=== PATIENT | female | born 1975 | race Caucasian/White ===

== ENCOUNTER 2017-10-11 15:08 | Emergency (ER) | END 2017-10-11 21:31 | disposition home or self-care (01) ==

== ENCOUNTER 2018-06-22 15:02 | Emergency (ER) | payer MEDICAID ==
[~2018-06-22] VITALS: Ht 165.1 cm; Wt 54.1 kg
[~2018-06-22 15:02] MED LIST: CEPH-443 PO
[2018-06-22 15:07] VITALS: Ht 165.1 cm; Wt 54.1 kg
[2018-06-22] MEDS ORDERED: SOD CHLORIDE 0.9% 1,000 ML IV STA (15:49)
[2018-06-22] MEDS ORDERED: ONDANSETRON 4 MG INJ IV STA (15:49)
[2018-06-22] MEDS ORDERED: ONDA4TAB14 PO (17:22)
--- NOTE | 2018-06-22 17:29 | ERD ---
ER Documentation Chief Complaint Chief Complaint Sent from MD for evaluation Hyperemesis, 7 weeks HPI Patient is a 42-year-old female with hypertension who presents with vomiting. She has had vomiting for 1 week. She is approximately 7 weeks . She denies pain. She had subjective fever but did not take her temperature. 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 She went to her clinic today who sent her to the emergency department for fluids. She has had no treatment as of yet. She is a . Her OB doctor is Dr. Torrez. ROS All systems reviewed and are negative except as per history of present illness. Medications Home Meds Active Scripts Ondansetron (Ondansetron Odt) 4 Mg Tab.rapdis, 4 MG PO Q6H PRN for NAUSEA AND/OR VOMITING, #10 TAB Prov:JIN SIMSPON MD 06/22/18 Discontinued Scripts Cephalexin* (Keflex*) 500 Mg Capsule, 500 MG PO QID for 7 Days, CAP Prov:REYNA CEBALLOS PA-C 10/11/17 Allergies Allergies: Coded Allergies: aspirin (Unverified Allergy, Unknown, 06/22/18) PMhx/Soc Medical and Surgical Hx: pt denies Medical Hx, pt denies Surgical Hx Hx Alcohol Use: No Hx Substance Use: No Hx Tobacco Use: No Smoking Status: Never smoker FmHx Family History: No diabetes Physical Exam Vitals Vital Signs Date Temp Pulse Resp B/P (MAP) Pulse Ox O2 O2 Flow FiO2 Time Delivery Rate 06/22/18 71 20 95/64 (74) 97 Room Air 16:13 06/22/18 98.6 72 20 103/66 99 15:07 (78) Physical Exam Const: No acute distress Head: Atraumatic Eyes: Normal Conjunctiva ENT: Normal External Ears, Nose and Mouth. Neck: Full range of motion. No meningismus. Resp: Clear to auscultation bilaterally Cardio: Regular rate and rhythm, no murmurs Abd: Soft, non tender, non distended. Normal bowel sounds Skin: No petechiae or rashes Back: No midline or flank tenderness Ext: No cyanosis, or edema Neur: Awake and alert Psych: Normal Mood and Affect Result Diagram: 06/22/18 1602 06/22/18 1602 Results 24 hrs Laboratory Tests Test 06/22/18 16:02 White Blood Count 6.1 10^3/ul Red Blood Count 4.49 10^6/ul Hemoglobin 13.7 g/dl Hematocrit 40.5 % Mean Corpuscular Volume 90.2 fl Mean Corpuscular Hemoglobin 30.5 pg Mean Corpuscular Hemoglobin Concent 33.8 g/dl Red Cell Distribution Width 12.0 % Platelet Count 308 10^3/UL Mean Platelet Volume 10.6 fl Immature Granulocytes % 0.300 % Neutrophils % 66.8 % Lymphocytes % 24.0 % Monocytes % 6.4 % Eosinophils % 2.0 % Basophils % 0.5 % Nucleated Red Blood Cells % 0.0 /100WBC Immature Granulocytes # 0.020 10^3/ul Neutrophils # 4.0 10^3/ul Lymphocytes # 1.5 10^3/ul Monocytes # 0.4 10^3/ul Eosinophils # 0.1 10^3/ul Basophils # 0.0 10^3/ul Nucleated Red Blood Cells # 0.0 10^3/ul Sodium Level 140 mmol/L Potassium Level 3.7 mmol/L Chloride Level 104 mmol/L Carbon Dioxide Level 23 mmol/L Anion Gap 13 Blood Urea Nitrogen 10 mg/dl Creatinine 0.43 mg/dl Est Glomerular Filtrat Rate mL/min > 60 mL/min Glucose Level 134 mg/dl Calcium Level 9.3 mg/dl Total Bilirubin 0.3 mg/dl Direct Bilirubin 0.00 mg/dl Indirect Bilirubin 0.3 mg/dl Aspartate Amino Transf (AST/SGOT) 30 IU/L Alanine Aminotransferase (ALT/SGPT) 25 IU/L Alkaline Phosphatase 59 IU/L Total Protein 7.6 g/dl Albumin 4.2 g/dl Globulin 3.40 g/dl Albumin/Globulin Ratio 1.23 Current Medications Medications Dose Sig/Tori Start Time Status Last (Trade) Ordered Route PRN Stop Time Admin Dose Reason Admin Sodium 1,000 ml @ Q1H STAT 06/22/18 DC 06/22/18 Chloride 1,000 mls/hr IV 15:49 16:03 06/22/18 16:48 Ondansetron 4 mg ONCE STAT 06/22/18 DC 06/22/18 HCl (Zofran IV 15:49 16:03 Inj) 06/22/18 15:50 Procedures/MDM Ultrasound shows IUP per radiology. Patient is a 42-year-old female presents with hyperemesis gravidarum. Laboratory studies are basically normal. The patient was given normal saline 1 L bolus and Zofran. Patient will be discharged as she was able to eat in the emergency department. She will be given a short course of Zofran for symptom medic relief. She can follow back with her OB doctor within 24-48 hours. Departure Diagnosis: Primary Impression: Hyperemesis Condition: Fair Patient Instructions: Hyperemesis Gravidarum (Severe Morning Sickness) Referrals: DIEGO TORREZ MD Additional Instructions: Specialist:Usted tiene monica condicin mdica que requiere que aramis a un especialista dentro de los prximos 1-2 harding.POR FAVOR,CON RUBIN SEGUIMIENTO DE PRIMARIA PHSICIAN refferal. SI USTED NO TIENE UN MDICO GENERAL Y / O USTED NO PUEDE PAGAR vicky a un mdico,los siguientes dawson RECURSOS sido suministrado a usted. ES RUBIN RESPONSABILIDAD PARA SER VISTOS POR EL ESPECIALISTA: JIN SIMPSON MD Jun 22, 2018 17:29
[2018-06-22 17:37] VITALS: BP 94/71; PULSE 87; RESP 14
== END 2018-06-22 17:38 | disposition home or self-care (01) ==
LOC: E/R 15:02
DX: O21.0 Mild hyperemesis gravidarum (principal); O10.011 Pre-existing essential hypertension complicating pregnancy, first trimester; Z3A.08 8 weeks gestation of pregnancy
CPT/HCPCS: 36415; 76801; 80053; 84702; 85025; 86900; 86901; 96374; J2405; J7030; Z7502

== ENCOUNTER 2018-07-02 11:51 | Emergency (ER) | payer MEDICAID ==
[~2018-07-02] VITALS: Ht 157.5 cm; Wt 52.7 kg
[~2018-07-02 11:51] MED LIST changes: -CEPH-443 PO; +ONDA4TAB14 PO
[2018-07-02 11:57] VITALS: BP 110/70; PULSE 78; RESP 18; Ht 157.5 cm; Wt 52.7 kg
[2018-07-02] MEDS ORDERED: SOD CHLORIDE 0.9% 1,000 ML IV STA (12:09)
[2018-07-02] MEDS ORDERED: METOCLOPRAMIDE 10 MG INJ IV ONE (12:30)
[2018-07-02] MEDS ORDERED: FAMOTIDINE 20 MG INJ IV ONE (12:30)
[2018-07-02] MEDS ORDERED: DIPHENHYDRAMINE 50 MG INJ IV ONE (12:30)
[2018-07-02] MEDS ORDERED: CEFTRIAXONE 1 GM/50 ML (PMX) 50 ML IVPB ONE (14:00)
[2018-07-02] MEDS ORDERED: METO10TA92 PO (14:57)
[2018-07-02] MEDS ORDERED: CEPH-443 PO (14:57)
[2018-07-02] MEDS ORDERED: ACET500C5 PO (15:01)
--- NOTE | 2018-07-02 17:28 | ERD ---
ER Documentation Chief Complaint Chief Complaint c/o Nausea/vomiting x2 days with epigastric pain, 9 weeks HPI 43-year-old female patient, currently , presents the ED stating that she has some epigastric pain that started 2 days ago associated with vomiting. Reports that she has been here previously for hyperemesis. States her FINISHED CLOTH CHECKER is Dr. Panda. She is a A2. States her last injection was on April 29, 2018. Denies any chest pain, shortness of breath, nausea, vomiting, diarrhea, neck stiffness. ROS All systems reviewed and are negative except as per history of present illness. Medications Home Meds Active Scripts Acetaminophen* (Tylophen*) 500 Mg Capsule, 1 CAP PO Q6H PRN for PAIN AND OR ELEVATED TEMP, #20 CAP Prov:BAR MCGUIRE PA-C 07/02/18 Metoclopramide* (Reglan*) 10 Mg Tablet, 10 MG PO Q6 PRN for NAUSEA AND/OR VOMITING, #10 TAB Prov:BAR MCGUIRE PA-C 07/02/18 Cephalexin* (Keflex*) 500 Mg Capsule, 500 MG PO QID for 7 Days, CAP Prov:BAR MCGUIRE PA-C 07/02/18 Ondansetron (Ondansetron Odt) 4 Mg Tab.rapdis, 4 MG PO Q6H PRN for NAUSEA AND/OR VOMITING, #10 TAB Prov:JIN SIMPSON MD 06/22/18 Allergies Allergies: Coded Allergies: aspirin (Unverified Allergy, Unknown, 06/22/18) PMhx/Soc Medical and Surgical Hx: pt denies Medical Hx, pt denies Surgical Hx Hx Alcohol Use: No Hx Substance Use: No Hx Tobacco Use: No Smoking Status: Never smoker FmHx Family History: No diabetes, No coronary disease Physical Exam Vitals Vital Signs Date Temp Pulse Resp B/P (MAP) Pulse Ox O2 O2 Flow FiO2 Time Delivery Rate 07/02/18 98.7 14:05 07/02/18 97.8 78 18 110/70 98 11:57 (83) Physical Exam Const: Dtb-[id number]-mrdoafjzs, well-nourished. In no acute distress. Head: Atraumatic, normocephalic Eyes: Normal Conjunctiva without injection. No purulent discharge. ENT: Normal external ear, nose. Moist oropharynx without tonsillar exudates. Non-erythematous pharynx. Uvula midline. No drooling. No trismus. Neck: No cervical midline tenderness. Full range of motion. No meningismus. No cervical lymphadenopathy. No JVD. Resp: Clear to auscultation bilaterally. No wheezing, rhonchi, rales, or crackles. No accessory muscle use. No retractions. Cardio: Regular rate and rhythm. No murmurs, rubs or gallops. Abd: Soft, epigastric and right upper quadrant tenderness, non distended. Normal bowel sounds. No palpable masses. No rebound tenderness. No guarding. Negative McBurney's point. Negative psoas sign. Negative obturator sign. Skin: No petechiae or rashes Back: No midline tenderness. No CVA tenderness. Ext: No cyanosis, or edema. Neur: Awake and alert. Normal gait. Normal coordination. Psych: Normal Mood and Affect Result Diagram: 07/02/18 1226 07/02/18 1226 Results 24 hrs Laboratory Tests Test 07/02/18 12:26 White Blood Count 7.9 10^3/ul Red Blood Count 4.82 10^6/ul Hemoglobin 14.6 g/dl Hematocrit 43.6 % Mean Corpuscular Volume 90.5 fl Mean Corpuscular Hemoglobin 30.3 pg Mean Corpuscular Hemoglobin Concent 33.5 g/dl Red Cell Distribution Width 11.6 % Platelet Count 359 10^3/UL Mean Platelet Volume 10.7 fl Immature Granulocytes % 0.600 % Neutrophils % 74.0 % Lymphocytes % 16.6 % Monocytes % 7.4 % Eosinophils % 1.1 % Basophils % 0.3 % Nucleated Red Blood Cells % 0.0 /100WBC Immature Granulocytes # 0.050 10^3/ul Neutrophils # 5.8 10^3/ul Lymphocytes # 1.3 10^3/ul Monocytes # 0.6 10^3/ul Eosinophils # 0.1 10^3/ul Basophils # 0.0 10^3/ul Nucleated Red Blood Cells # 0.0 10^3/ul Urine Color ZOEY Urine Clarity TURBID Urine pH 6.0 Urine Specific Correll 1.024 Urine Ketones 1+ mg/dL Urine Nitrite NEGATIVE mg/dL Urine Bilirubin NEGATIVE mg/dL Urine Urobilinogen 1+ mg/dL Urine Leukocyte Esterase 3+ Araceli/ul Urine Microscopic RBC 34 /HPF Urine Microscopic WBC > 182 /HPF Urine Squamous Epithelial Cells MANY /HPF Urine Bacteria FEW /HPF Urine Mucus MANY /HPF Urine Hemoglobin NEGATIVE mg/dL Urine Glucose NEGATIVE mg/dL Urine Total Protein 1+ mg/dl Sodium Level 140 mmol/L Potassium Level 4.2 mmol/L Chloride Level 102 mmol/L Carbon Dioxide Level 25 mmol/L Anion Gap 13 Blood Urea Nitrogen 8 mg/dl Creatinine 0.53 mg/dl Est Glomerular Filtrat Rate mL/min > 60 mL/min Glucose Level 86 mg/dl Calcium Level 10.1 mg/dl Total Bilirubin 0.3 mg/dl Direct Bilirubin 0.00 mg/dl Indirect Bilirubin 0.3 mg/dl Aspartate Amino Transf (AST/SGOT) 25 IU/L Alanine Aminotransferase (ALT/SGPT) 16 IU/L Alkaline Phosphatase 79 IU/L Total Protein 8.3 g/dl Albumin 4.7 g/dl Globulin 3.60 g/dl Albumin/Globulin Ratio 1.30 Lipase 94 U/L Beta HCG, Quantitative 671988.0 mIU/ml Current Medications Medications Dose Sig/Tori Start Time Status Last (Trade) Ordered Route PRN Stop Time Admin Dose Reason Admin Sodium 1,000 ml @ Q1H STAT 07/02/18 DC 07/02/18 Chloride 1,000 mls/hr IV 12:09 07/02/18 12:26 13:08 10 mg ONCE ONCE 07/02/18 DC 07/02/18 Metoclopramid IV 12:30 07/02/18 12:26 e HCl 12:31 (Reglan) 25 mg ONCE ONCE 07/02/18 DC 07/02/18 Diphenhydrami IV 12:30 07/02/18 12:26 ne HCl 12:31 (Benadryl) Famotidine 20 mg ONCE ONCE 07/02/18 DC 07/02/18 (Pepcid Iv) IV 12:30 07/02/18 12:26 12:31 Ceftriaxone 50 ml @ ONCE ONCE 07/02/18 DC 07/02/18 Sodium 100 mls/hr IVPB 14:00 07/02/18 14:03 14:29 Procedures/MDM 43-year-old female patient with no significant past medical history presents to the ED complaining of vomiting and epigastric pain. Patient is afebrile and nontoxic-appearing. An ultrasound, beta-hCG, CBC, type and RH, UA was ordered to evaluate patient. CBC: No evidence of severe infection or anemia CMP: No evidence of alkalosis, acidosis, liver disease, DKA, kidney disease Urine: No elevation in nitrites, 3+ leukocyte esterase, hematuria. Rh: O positive. No indication for Rhogam at this time. beta Hc increased from last visit. Lipase WNL IMPRESSION: 1. Cholelithiasis. There is no gallbladder wall thickening or pericholecystic fluid to suggest acute cholecystitis. 2. No biliary duct dilatation IMPRESSION: 1. Single live insuring of 9 weeks 1 day gestation. 2. Positive cardiac activity. 3. Stable small subchorionic hemorrhage. 4. Corpus luteal cyst within left ovary. There are no complex adnexal masses. 5. No free fluid Patient has a single IUP of 9 weeks, 1 day. Patient noted to have 3+ leukocyte esterase and > 182 WBC. Patient will be treated for urinary tract infection. Patient was treated here in the ED with ceftriaxone 1 g IV and 1 L of normal saline with improvement of her symptoms. She also has hyperemesis gravidarum. Instructed that since she had a small subchorionic hemorrhage, pelvic rest was recommended. Low suspicion for symptomatic anemia, ectopic , sepsis, PID, appendicitis, ovarian torsion, tubo-ovarian abscess, surgical abdomen, or other emergent conditions. Patient was educated that there is a risk for threatened . Patient to follow up with FINISHED CLOTH CHECKER in 2 days for further evaluation and treatment. Patient is to return sooner to the ED for any worsening symptoms. Patient's questions were answered. Patient understood and agreed with discharge plan. Spoke to Dr. Eckert, my supervising physician who agreed with the management discharge plan. Diagnosis: Urinary Tract Infection, Vomiting During Discharge medications: Reglan, Keflex, Tylenol Follow up with primary care physician in 1-2 days. Instructed patient to return to the ED sooner for any worsening symptoms. Patient's questions were answered. Patient is hemodynamically stable. Patient understood and agreed with discharge plan. Patient discharged stable. Disclaimer: Inadvertent spelling and grammatical errors are likely due to EHR/dictation software use and do not reflect on the overall quality of patient care. Also, please note that the electronic time recorded on this note does not necessarily reflect the actual time of the patient encounter. Departure Diagnosis: Primary Impression: Urinary tract infection Urinary tract infection type: site unspecified Hematuria presence: without hematuria Qualified Codes: N39.0 - Urinary tract infection, site not specified Additional Impression: Vomiting during Condition: Stable Patient Instructions: What Are Ovarian Cysts?, Urinary Tract Infections in Women, After Age 35, : Your First Trimester Changes, Hyperem esis Gravidarum Referrals: [facility] YOU HAVE RECEIVED A MEDICAL SCREENING EXAM AND THE RESULTS INDICATE THAT YOU DO NOT HAVE A CONDITION THAT REQUIRES URGENT TREATMENT IN THE EMERGENCY DEPARTMENT. FURTHER EVALUATION AND TREATMENT OF YOUR CONDITION CAN WAIT UNTIL YOU ARE SEEN IN YOUR DOCTORS OFFICE WITHIN THE NEXT 1-2 DAYS. IT IS YOUR RESPONSIBILITY TO MAKE AN APPOINTMENT FOR FOLOW-UP CARE. IF YOU HAVE A PRIMARY DOCTOR --you should call your primary doctor and schedule an appointment IF YOU DO NOT HAVE A PRIMARY DOCTOR YOU CAN CALL OUR PHYSICIAN REFERRAL HOTLINE AT IF YOU CAN NOT AFFORD TO SEE A PHYSICIAN YOU CAN CHOSE FROM THE FOLLOWING [facility] [address] [facility] [address] [facility] [facility]. [facility] [address] [facility] [address] [facility] [address] [facility]. [facility] [address] [facility]. [facility] YOU HAVE RECEIVED A MEDICAL SCREENING EXAM AND THE RESULTS INDICATE THAT YOU DO NOT HAVE A CONDITION THAT REQUIRES URGENT TREATMENT IN THE EMERGENCY DEPARTMENT. FURTHER EVALUATION AND TREATMENT OF YOUR CONDITION CAN WAIT UNTIL YOU ARE SEEN IN YOUR DOCTORS OFFICE WITHIN THE NEXT 1-2 DAYS. IT IS YOUR RESPONSIBILITY TO MAKE AN APPOINTMENT FOR FOLOW-UP CARE. IF YOU HAVE A PRIMARY DOCTOR --you should call your primary doctor and schedule and appointment IF YOU DO NOT HAVE A PRIMARY DOCTOR YOU CAN CALL OUR PHYSICIAN REFERRAL HOTLINE AT . IF YOU CAN NOT AFFORD TO SEE A PHYSICIAN YOU CAN CHOSE FROM THE FOLLOWING [facility] INSTITUTIONS: [facility] [address] [place] [address] [facility] [address] [place] [address] [facility] [address] [place] [address] [facility] URGENT CARE/SPECIALTIES FINISHED CLOTH CHECKER [place] [address] [facility] [address] [place] [address] OFFICE FAX , [facility] [address] [place] [address] [address] ENGEL, [place] [address] [place] [address] DR ZHANG, [facility] [address] [facility], [address], [facility] [address] [address]WIS, [facility] [address] [place] [address] [facility] [address] [place] [address] [address] [facility] [address] - [address] REDDY ZORA [address] [facility]. [address], [facility] [address] [address] NATARAJAN, [facility] [address] [facility]. [address], [facility] [address] [address] MERRILL, [facility] [address] [place], [place] [id number] [facility] Hours: 8:00 am - 5:00 pm Additional Instructions: Call your FINISHED CLOTH CHECKER TOMORROW for an appointment during the next 2-3 days.See the doctor sooner or return here if your condition worsens before your appointment time. BAR MCGUIRE PA-C Jul 02, 2018 17:26
== END 2018-07-02 15:08 | disposition home or self-care (01) ==
LOC: FTE 11:51
DX: O23.41 Unspecified infection of urinary tract in pregnancy, first trimester (principal); R10.2 Pelvic and perineal pain; Z3A.09 9 weeks gestation of pregnancy
CPT/HCPCS: 36415; 76705; 76801; 80053; 81001; 83690; 84702; 85025; 86900; 86901; 96361; 96365; 96375; J0696; J1200; J2765; J7030; Z7502; Z7610

== ENCOUNTER 2018-10-15 23:32 | Emergency (ER) | payer MEDICAID ==
[~2018-10-15] VITALS: Ht 139.7 cm; Wt 55.0 kg
[~2018-10-15 23:32] MED LIST changes: +ACET500C5 PO; +CEPH-443 PO; +METO10TA92 PO
[2018-10-15 23:39] VITALS: Ht 139.7 cm; Wt 55.0 kg
[2018-10-15 23:56] VITALS: BP 99/65; PULSE 70; RESP 16
[2018-10-15] MEDS ORDERED: BELLADONNA/PHENOBARBITAL TAB PO STA (23:56)
[2018-10-15] MEDS ORDERED: LIDOCAINE/MYLANTA 40 ML BTL PO STA (23:56)
--- NOTE | 2018-10-15 23:56 | ERD ---
ER Documentation Chief Complaint Chief Complaint SOBWITH CHEST PAIN STARTED AROUND 1630 TODAY, OB CLEARED. HPI This is a 43-year-old woman 6 weeks by previously confirmed normal ul trasound and dates just cleared from the OB department and brought here for evaluation of chest pain. The pain is sharp nonexertional nonradiating and has been constant for the last 8 to 9 hours. She denies fevers or chills, no cough, no sore throat, no calf or leg swelling, no headache or blurry vision. ROS All systems reviewed and are negative except as per history of present illness. Medications Home Meds Discontinued Scripts Acetaminophen* (Tylophen*) 500 Mg Capsule, 1 CAP PO Q6H PRN for PAIN AND OR ELEVATED TEMP, #20 CAP Prov:BAR MCGUIRE PA-C 07/02/18 Metoclopramide* (Reglan*) 10 Mg Tablet, 10 MG PO Q6 PRN for NAUSEA AND/OR VOMITING, #10 TAB Prov:BAR MCGUIRE PA-C 07/02/18 Cephalexin* (Keflex*) 500 Mg Capsule, 500 MG PO QID for 7 Days, CAP Prov:BAR MCGUIRE PA-C 07/02/18 Ondansetron (Ondansetron Odt) 4 Mg Tab.rapdis, 4 MG PO Q6H PRN for NAUSEA AND/OR VOMITING, #10 TAB Prov:JIN SIMPSON MD 06/22/18 Allergies Allergies: Coded Allergies: acetaminophen (Verified Allergy, Mild, RASH, 10/15/18) PMhx/Soc Medical and Surgical Hx: pt denies Medical Hx, pt denies Surgical Hx Hx Alcohol Use: No Hx Substance Use: No Hx Tobacco Use: No Smoking Status: Never smoker FmHx Family History: No diabetes Physical Exam Vitals Vital Signs Date Temp Pulse Resp B/P (MAP) Pulse Ox O2 O2 Flow FiO2 Time Delivery Rate 10/15/18 70 16 99/65 (76) 98 Room Air 23:56 10/15/18 97.3 65 16 90/62 (71) 98 23:39 Physical Exam CARDIAC: Regular rate and rhythm, no murmurs rubs or gallops LUNGS: Clear bilaterally no wheezing crackles or stridor ABDOMEN: Soft nontender, no guarding, no rigidity, no rebound, no psoas sign no obturator sign. Normoactive bowel sounds SKIN: Warm and dry to touch, no abrasions, contusions, or hematomas, no lacerations, no ecchymosis, no target lesions, and without ulcers EXTREMITIES: No clubbing cyanosis or edema, calves are bilaterally symmetrical, no Homans sign, no popliteal cord sign. Distal pulses equal and bilateral PSYCH: Normal affect without agitation or irritability Results 24 hrs Laboratory Tests Test 10/15/18 23:58 Troponin I < 0.012 ng/ml B-Type Natriuretic Peptide 70 PG/ML Current Medications Medications Dose Sig/Tori Start Time Status Last (Trade) Ordered Route PRN Stop Time Admin Dose Reason Admin 40 ml ONCE STAT 10/15/18 DC Miscellaneous PO 23:56 Medication 10/15/18 23:57 (Gi Cocktail (2)) Belladonna/ 2 tab ONCE STAT 10/15/18 DC Phenobarbital PO 23:56 () 10/15/18 23:57 Procedures/MDM IV line was established patient was placed on monitor tech rhythm strip revealed a sinus rhythm at about 80 bpm with upright P and T waves. Patient was afebrile EKG was performed, read by me revealed a normal sinus rhythm 81 bpm, normal axis, narrow QRS complex, no concerning ST elevations or depressions noted Troponin was negative, BNP was low. Patient's vital signs are normal and oxygen saturation is 100% on room air. She looks well will be discharged to follow-up with PMD for continued outpatient management. Differential diagnoses considered, included but not limited to acute coronary syndrome, pulmonary embolism, aortic dissection, abdominal aortic aneurysm, sepsis, stroke, meningitis, encephalitis, pneumonia, appendicitis, cholecystitis, bowel obstruction, pyelonephritis, nephrolithiasis, cystitis, as well as metabolic, hematologic, and electrolyte abnormalities. As well as abscess, cellulitis, fractures, and dislocations. Patient feels much better at this time, and vital signs are normal, symptoms have improved. I did give strict instructions to return to the ED if symptoms continue or worsen, patient will otherwise follow-up with primary care physician. Patient understood instructions and agreed to plan. Disclaimer: Inadvertent spelling and grammatical errors are likely due to EHR/dictation software use and do not reflect on the overall quality of patient care. Also, please note that the electronic time recorded on this note does not necessarily reflect the actual time of the patient encounter. Departure Diagnosis: Primary Impression: Chest pain Chest pain type: unspecified Qualified Codes: R07.9 - Chest pain, unspecified Condition: Good YUMIKO GLORIA MD Oct 15, 2018 23:56
--- NOTE | 2018-10-16 01:14 | PN ---
Triage Information Date/Time 10/16/18 Reason for visit: chest pain with hard stomach dfM Weeks of Gestation 24w1d /Para Diabetes: none Hypertention: none Objective Vital Signs Date Temp Pulse Resp B/P (MAP) Pulse Ox O2 O2 Flow FiO2 Time Delivery Rate 10/15/18 70 16 99/65 (76) 98 Room Air 23:56 10/15/18 97.3 23:39 Heart Rate: 130's Heart Rate Comments adequate for GA Contractions: None Exam EKG Results/Medications Results 24 hrs Laboratory Tests Test 10/15/18 23:58 Troponin I < 0.012 B-Type Natriuretic Peptide 70 Imaging Results MARTIN MVP 4.9 EFW 767gm CVL 5.1 cholelithiasis Disposition: ER for further evaluation of chest pain even though poss og chest pain is due to cholelithiaiss Assessment/Plan A IUP 24w1d cholelithiasis chest pain P to ER for evaluation of chest pain f/u with her OB JOSELINE BUNCH MD Oct 16, 2018 01:14
== END 2018-10-16 01:22 | disposition home or self-care (01) ==
LOC: E/R 23:32
DX: O99.89 Other specified diseases and conditions complicating pregnancy, childbirth and the puerperium (principal); R07.9 Chest pain, unspecified; Z3A.01 Less than 8 weeks gestation of pregnancy
CPT/HCPCS: 83880; 84484; Z7502; Z7610